=== PATIENT | male | born 1975 ===

== ENCOUNTER 2019-09-10 14:19 | Inpatient (IN) ==
[2019-09-10] MEDS ORDERED: ONDANSETRON 4 MG/2 ML VIAL ONE (14:54)
[2019-09-10] MEDS ORDERED: HYDROmorphone 2 MG/1 ML VIAL ONE (14:54)
[2019-09-10] MEDS ORDERED: BISACODYL 5 MG TABLET PO PRN (15:13)
[2019-09-10] MEDS ORDERED: cloNIDine 0.1 MG TABLET PO PRN (15:20)
[2019-09-10] MEDS ORDERED: SODIUM CHLORIDE 0.9% 1,000 ML IV STA (15:22)
[2019-09-10] MEDS ORDERED: GLUCAGON 1 MG VIAL IM PRN (15:22)
[2019-09-10] MEDS ORDERED: DEXTROSE 10% 25 GM/250 ML BAG IV PRN (15:22)
[2019-09-10] MEDS ORDERED: HYDROmorphone 2 MG/1 ML VIAL IV STA (15:26)
[2019-09-10 18:00] LABS: Basophils % 0.3 % (0.0-0.8); Eosinophils % 0.1 % (0.00-10.9); Hematocrit 40.6 VOL% (42.0-52.0); Hemoglobin 14.2 GM/DL (14.0-18.0); Immature Granulocytes % 0.3 %; Immature Granulocytes Absolute 0.03 #; Lymphocytes # 0.9 10*3/uL (1.4-4.0); Lymphocytes % 8.7 % (21.2-54.2); Mean Corpuscular Volume 88.1 FL (87-102); Mean Platelet Volume 9.5 FL (9.6-12.0); Monocytes % 10.3 % (1.7-12.7); Neutrophils % 80.3 % (38.7-73.9); Platelet Count 208 T/CUMM (130-400); Red Blood Count 4.61 MC/CUMM (3.8-5.5); Red Cell Distribution Width 12.1 % (9.3-17.3); White Blood Count 9.9 T/CUMM (4-12)
[2019-09-10] MEDS: INSULIN LISPRO 100 UNIT/ML SUBCUT SCH (18:22)
[2019-09-10] MEDS: LACTATED RINGERS 1,000 ML IV SCH (18:23)
[2019-09-10] MEDS: PIPERACILLIN/TAZOBACTAM 3,375 MG in SODIUM CHLORIDE 0.9% 100 ML IV SCH (18:23)
[2019-09-10 18:30] LABS: Albumin 3.2 G/DL (3.4-5.0); Bilirubin,Total 3.9 MG/DL (0.2-1.0); Calcium 8.3 MG/DL (8.5-10.1); Osmolality,Calculated 285.8 MOS/KG (273-304); Total Protein 7.2 G/DL (6.4-8.3)
[2019-09-10] MEDS ORDERED: LACTATED RINGERS 500 ML IV ONE (19:33)
[2019-09-10] MEDS: METOPROLOL SUCCINATE XL 50 MG TABLET PO SCH (20:22)
[2019-09-11] MEDS: PIPERACILLIN/TAZOBACTAM 3,375 MG in SODIUM CHLORIDE 0.9% 100 ML IV SCH ×3 (02:57→17:11)
[2019-09-11 06:35] LABS: Basophils % 0.5 % (0.0-0.8); Eosinophils # 0.1 10*3/uL (0.0-0.87); Eosinophils % 1.7 % (0.00-10.9); Hematocrit 37.6 VOL% (42.0-52.0); Hemoglobin 13.1 GM/DL (14.0-18.0); Immature Granulocytes % 0.5 %; Immature Granulocytes Absolute 0.04 #; Lymphocytes # 0.9 10*3/uL (1.4-4.0); Lymphocytes % 11.3 % (21.2-54.2); Mean Corpuscular HGB Conc 34.8 GM/DL (32-36); Mean Corpuscular Volume 87.2 FL (87-102); Mean Platelet Volume 10.4 FL (9.6-12.0); Monocytes % 9.3 % (1.7-12.7); Neutrophils % 76.7 % (38.7-73.9); Platelet Count 202 T/CUMM (130-400); Red Blood Count 4.31 MC/CUMM (3.8-5.5); White Blood Count 7.6 T/CUMM (4-12)
[2019-09-11 07:03] LABS: Albumin 2.8 G/DL (3.4-5.0); Bilirubin,Total 4.7 MG/DL (0.2-1.0); Calcium 8.5 MG/DL (8.5-10.1); Osmolality,Calculated 279.1 MOS/KG (273-304); Total Protein 6.5 G/DL (6.4-8.3)
[2019-09-11] MEDS: ONDANSETRON 4 MG/2 ML VIAL IV PRN ×2 (07:21→15:40)
[2019-09-11] MEDS: INSULIN LISPRO 100 UNIT/ML SUBCUT SCH ×3 (07:40→16:20)
[2019-09-11] MEDS: LACTATED RINGERS 1,000 ML IV SCH ×4 (07:40→17:12)
[2019-09-11] MEDS: LOSARTAN 50 MG TABLET PO SCH (08:44)
[2019-09-11] MEDS: PANTOPRAZOLE 40 MG TABLET PO SCH (08:45)
[2019-09-11] MEDS: HYDROmorphone 2 MG/1 ML VIAL IV PRN ×2 (10:28→21:01)
[2019-09-11] MEDS: METOPROLOL SUCCINATE XL 50 MG TABLET PO SCH (21:01)
[2019-09-11] MEDS: ACETAMINOPHEN 325 MG TABLET PO PRN (23:10)
[2019-09-12] MEDS: ONDANSETRON 4 MG/2 ML VIAL IV PRN ×2 (01:38→07:50)
[2019-09-12] MEDS: PIPERACILLIN/TAZOBACTAM 3,375 MG in SODIUM CHLORIDE 0.9% 100 ML IV SCH ×3 (02:45→17:00)
[2019-09-12] MEDS: HYDROmorphone 2 MG/1 ML VIAL IV PRN ×4 (03:39→21:25)
[2019-09-12] MEDS: LACTATED RINGERS 1,000 ML IV SCH ×3 (03:47→16:52)
[2019-09-12 06:00] LABS: Albumin 2.7 G/DL (3.4-5.0); Bilirubin,Direct 2.71 MG/DL (0.0-0.20); Bilirubin,Indirect 0.7 MG/DL (0.0-1.0); Bilirubin,Total 3.4 MG/DL (0.2-1.0); Total Protein 6.6 G/DL (6.4-8.3)
[2019-09-12] MEDS ORDERED: INDOMETHACIN SUPP 50 MG SUPP RECTAL ONE ×2 (08:00→13:03)
[2019-09-12] MEDS: LOSARTAN 50 MG TABLET PO SCH (08:21)
[2019-09-12] MEDS ORDERED: SUCCINYLCHOLINE 200 MG/10 ML VIAL ONE (09:00)
[2019-09-12] MEDS ORDERED: LIDOCAINE 2% 5 ML VIAL ONE (09:00)
[2019-09-12] MEDS ORDERED: PROPOFOL 200 MG/20 ML VIAL IV ONE (09:00)
[2019-09-12] MEDS ORDERED: ONDANSETRON 4 MG/2 ML VIAL ONE (09:00)
[2019-09-12] MEDS: INSULIN LISPRO 100 UNIT/ML SUBCUT SCH ×3 (09:25→16:51)
[2019-09-12] MEDS: PANTOPRAZOLE 40 MG TABLET PO SCH (11:02)
[2019-09-12] MEDS ORDERED: fentaNYL 100 MCG/2 ML VIAL ONE (12:43)
[2019-09-12] MEDS ORDERED: MIDAZOLAM 2 MG/2 ML VIAL ONE (12:44)
[2019-09-12] MEDS ORDERED: GLUCAGON 1 MG VIAL ONE (13:31)
[2019-09-12] MEDS ORDERED: SEVOFLURANE 1 UNIT/15 MINUTE INH ONE (14:22)
[2019-09-12] MEDS: METOPROLOL SUCCINATE XL 50 MG TABLET PO SCH (21:25)
[2019-09-13] MEDS: LACTATED RINGERS 1,000 ML IV SCH ×4 (02:31→23:50)
[2019-09-13] MEDS: PIPERACILLIN/TAZOBACTAM 3,375 MG in SODIUM CHLORIDE 0.9% 100 ML IV SCH ×3 (02:31→17:15)
[2019-09-13 06:05] LABS: Basophils # 0.1 10*3/uL (0.0-0.2); Basophils % 0.5 % (0.0-0.8); Eosinophils % 0.3 % (0.00-10.9); Hematocrit 36.5 VOL% (42.0-52.0); Hemoglobin 12.9 GM/DL (14.0-18.0); Immature Granulocytes % 0.7 %; Immature Granulocytes Absolute 0.08 #; Lymphocytes # 0.9 10*3/uL (1.4-4.0); Lymphocytes % 7.5 % (21.2-54.2); Mean Corpuscular HGB Conc 35.3 GM/DL (32-36); Mean Corpuscular Volume 87.5 FL (87-102); Mean Platelet Volume 10.6 FL (9.6-12.0); Monocytes % 12.9 % (1.7-12.7); Neutrophils % 78.1 % (38.7-73.9); Platelet Count 189 T/CUMM (130-400); Red Blood Count 4.17 MC/CUMM (3.8-5.5); Red Cell Distribution Width 12.2 % (9.3-17.3)
[2019-09-13 06:29] LABS: Albumin 2.3 G/DL (3.4-5.0); Bilirubin,Total 2.6 MG/DL (0.2-1.0); Calcium 8.2 MG/DL (8.5-10.1); Osmolality,Calculated 277.1 MOS/KG (273-304); Total Protein 5.9 G/DL (6.4-8.3)
[2019-09-13] MEDS: INSULIN LISPRO 100 UNIT/ML SUBCUT SCH ×3 (09:12→17:15)
[2019-09-13] MEDS: PANTOPRAZOLE 40 MG TABLET PO SCH (09:40)
[2019-09-13] MEDS: LOSARTAN 50 MG TABLET PO SCH (09:40)
[2019-09-13] MEDS: HYDROmorphone 2 MG/1 ML VIAL IV PRN (12:27)
[2019-09-13] MEDS: METOPROLOL SUCCINATE XL 50 MG TABLET PO SCH (21:40)
[2019-09-13] MEDS: ACETAMINOPHEN 325 MG TABLET PO PRN (21:41)
[2019-09-14] MEDS: PIPERACILLIN/TAZOBACTAM 3,375 MG in SODIUM CHLORIDE 0.9% 100 ML IV SCH ×2 (02:00→13:29)
[2019-09-14] MEDS: LACTATED RINGERS 1,000 ML IV SCH ×4 (07:09→21:35)
[2019-09-14 07:36] LABS: Basophils # 0.1 10*3/uL (0.0-0.2); Basophils % 0.5 % (0.0-0.8); Eosinophils # 0.1 10*3/uL (0.0-0.87); Eosinophils % 1.2 % (0.00-10.9); Hematocrit 38.6 VOL% (42.0-52.0); Hemoglobin 13.3 GM/DL (14.0-18.0); Immature Granulocytes % 0.8 %; Immature Granulocytes Absolute 0.08 #; Lymphocytes # 1.2 10*3/uL (1.4-4.0); Lymphocytes % 11.5 % (21.2-54.2); Mean Corpuscular HGB Conc 34.5 GM/DL (32-36); Mean Corpuscular Volume 88.5 FL (87-102); Mean Platelet Volume 9.9 FL (9.6-12.0); Monocytes % 9.8 % (1.7-12.7); Neutrophils % 76.2 % (38.7-73.9); Platelet Count 204 T/CUMM (130-400); Red Blood Count 4.36 MC/CUMM (3.8-5.5); Red Cell Distribution Width 12.4 % (9.3-17.3)
[2019-09-14 07:50] LABS: Albumin 2.4 G/DL (3.4-5.0); Bilirubin,Total 1.8 MG/DL (0.2-1.0); Calcium 8.6 MG/DL (8.5-10.1); Osmolality,Calculated 281.7 MOS/KG (273-304); Total Protein 6.5 G/DL (6.4-8.3)
[2019-09-14] MEDS ORDERED: TISSUE ADHESIVE 1 EACH APPLICATOR TOP ONE (09:05)
[2019-09-14] MEDS ORDERED: LIDOCAINE 1%/EPI INJ 20 ML VIAL ONE (09:05)
[2019-09-14] MEDS ORDERED: ceFAZolin 1,000 MG VIAL ONE (09:45)
[2019-09-14] MEDS ORDERED: SUGAMMADEX 200 MG/2 ML VIAL IV ONE (10:56)
[2019-09-14] MEDS ORDERED: ROPIVACAINE 0.5% 30 ML VIAL ONE (11:40)
[2019-09-14] MEDS ORDERED: PROPOFOL 200 MG/20 ML VIAL IV ONE (11:55)
[2019-09-14] MEDS ORDERED: HYDROmorphone 2 MG/1 ML VIAL ONE (11:55)
[2019-09-14] MEDS ORDERED: LIDOCAINE 2% 5 ML VIAL ONE (11:55)
[2019-09-14] MEDS ORDERED: ONDANSETRON 4 MG/2 ML VIAL ONE ×2 (11:55→11:56)
[2019-09-14] MEDS: HYDROmorphone 2 MG/1 ML VIAL IV PRN ×5 (11:55→21:34)
[2019-09-14] MEDS ORDERED: ROCURONIUM 100 MG/10 ML VIAL IV ONE (11:56)
[2019-09-14] MEDS ORDERED: DESFLURANE 1 UNIT/15 MINUTE INH ONE (11:56)
[2019-09-14] MEDS ORDERED: ACETAMINOPHEN 1,000 MG/100 ML VIAL IV ONE (11:56)
[2019-09-14] MEDS ORDERED: MIDAZOLAM 2 MG/2 ML VIAL ONE (11:56)
[2019-09-14] MEDS ORDERED: LACTATED RINGERS 2,000 ML IV ONE (11:56)
[2019-09-14] MEDS ORDERED: fentaNYL 100 MCG/2 ML VIAL ONE (11:56)
[2019-09-14] MEDS ORDERED: ONDANSETRON 4 MG/2 ML VIAL IV PRN (12:27)
[2019-09-14] MEDS: INSULIN LISPRO 100 UNIT/ML SUBCUT SCH ×3 (12:58→16:45)
[2019-09-14] MEDS: LOSARTAN 50 MG TABLET PO SCH (13:29)
[2019-09-14] MEDS: PANTOPRAZOLE 40 MG TABLET PO SCH (13:29)
[2019-09-14] MEDS: ACETAMINOPHEN 325 MG TABLET PO PRN (21:35)
[2019-09-14] MEDS: METOPROLOL SUCCINATE XL 50 MG TABLET PO SCH (21:35)
[2019-09-15] MEDS: HYDROmorphone 2 MG/1 ML VIAL IV PRN ×7 (00:22→23:47)
[2019-09-15] MEDS: PIPERACILLIN/TAZOBACTAM 3,375 MG in SODIUM CHLORIDE 0.9% 100 ML IV SCH ×4 (00:24→23:48)
[2019-09-15 05:22] LABS: Basophils % 0.3 % (0.0-0.8); Eosinophils % 0.1 % (0.00-10.9); Hematocrit 39.5 VOL% (42.0-52.0); Hemoglobin 13.3 GM/DL (14.0-18.0); Immature Granulocytes % 0.8 %; Immature Granulocytes Absolute 0.09 #; Lymphocytes # 0.9 10*3/uL (1.4-4.0); Lymphocytes % 7.5 % (21.2-54.2); Mean Corpuscular HGB Conc 33.7 GM/DL (32-36); Mean Corpuscular Volume 90.2 FL (87-102); Mean Platelet Volume 9.8 FL (9.6-12.0); Monocytes % 11.1 % (1.7-12.7); Neutrophils % 80.2 % (38.7-73.9); Platelet Count 257 T/CUMM (130-400); Red Blood Count 4.38 MC/CUMM (3.8-5.5); Red Cell Distribution Width 12.6 % (9.3-17.3); White Blood Count 11.5 T/CUMM (4-12)
[2019-09-15 05:57] LABS: Albumin 2.2 G/DL (3.4-5.0); Bilirubin,Total 1.3 MG/DL (0.2-1.0); Calcium 8.9 MG/DL (8.5-10.1); Osmolality,Calculated 278.4 MOS/KG (273-304); Total Protein 6.5 G/DL (6.4-8.3)
[2019-09-15] MEDS: LACTATED RINGERS 1,000 ML IV SCH ×2 (06:05→20:49)
[2019-09-15] MEDS: LOSARTAN 50 MG TABLET PO SCH (08:33)
[2019-09-15] MEDS: PANTOPRAZOLE 40 MG TABLET PO SCH (08:33)
[2019-09-15] MEDS: INSULIN LISPRO 100 UNIT/ML SUBCUT SCH ×3 (09:15→16:56)
[2019-09-15] MEDS: METOPROLOL SUCCINATE XL 50 MG TABLET PO SCH (20:49)
[2019-09-15] MEDS: ACETAMINOPHEN 325 MG TABLET PO PRN (23:47)
[2019-09-16] MEDS: HYDROmorphone 2 MG/1 ML VIAL IV PRN ×2 (02:22→06:10)
[2019-09-16] MEDS: LACTATED RINGERS 1,000 ML IV SCH ×3 (06:10→22:45)
[2019-09-16] MEDS: LOSARTAN 50 MG TABLET PO SCH (08:21)
[2019-09-16] MEDS: PANTOPRAZOLE 40 MG TABLET PO SCH (08:21)
[2019-09-16] MEDS: PIPERACILLIN/TAZOBACTAM 3,375 MG in SODIUM CHLORIDE 0.9% 100 ML IV SCH ×2 (08:22→17:40)
[2019-09-16] MEDS: INSULIN LISPRO 100 UNIT/ML SUBCUT SCH ×3 (09:26→17:40)
[2019-09-16] MEDS ORDERED: HYDROmorphone 2 MG/1 ML VIAL IV PRN (09:53)
[2019-09-16] MEDS: METOPROLOL SUCCINATE XL 50 MG TABLET PO SCH (20:54)
[2019-09-17] MEDS: PIPERACILLIN/TAZOBACTAM 3,375 MG in SODIUM CHLORIDE 0.9% 100 ML IV SCH ×2 (00:53→09:00)
[2019-09-17] MEDS: LACTATED RINGERS 1,000 ML IV SCH (06:32)
[2019-09-17] MEDS: INSULIN LISPRO 100 UNIT/ML SUBCUT SCH ×3 (08:55→17:59)
[2019-09-17] MEDS: PANTOPRAZOLE 40 MG TABLET PO SCH (08:56)
[2019-09-17] MEDS: LOSARTAN 50 MG TABLET PO SCH (08:56)
[2019-09-17] MEDS ORDERED: ERGOCALCIFEROL 50,000 UNIT CAPSULE PO SCH (09:00)
[2019-09-17] MEDS: ACETAMINOPHEN 325 MG TABLET PO PRN (14:20)
[2019-09-17] MEDS: METOPROLOL SUCCINATE XL 50 MG TABLET PO SCH (20:06)
[2019-09-18 07:57] VITALS: BP 171/81
[2019-09-18] MEDS: PANTOPRAZOLE 40 MG TABLET PO SCH (08:18)
[2019-09-18] MEDS: LOSARTAN 50 MG TABLET PO SCH (08:18)
[2019-09-18] MEDS: INSULIN LISPRO 100 UNIT/ML SUBCUT SCH ×2 (08:18→11:21)
== END 2019-09-18 11:35 | disposition home or self-care (01) | DRG 415 ==
LOC: EDBD → EDUNIT# → N.ED 14:19 → N.EDINP 15:13 → N.3E 17:15
PROVIDERS: ADMIT Student in an Organized Health Care Education/Training Program; ATTEND Student in an Organized Health Care Education/Training Program
PROC: ERCPWSP (ICD-10-PCS; 2019-09-12 10:05)
PROC: LAPCHOL (2019-09-14 09:16)